=== PATIENT | female | born 1955 | race Caucasian/White ===

== ENCOUNTER 2018-01-27 18:02 | Outpatient (CLI) | payer MEDICAID | END 2018-01-27 18:03 | disposition EMS.NT | LOC: EMS 18:02 | PROVIDERS: ATTEND Surgery | DX: R56.9 Unspecified convulsions (principal) ==

== ENCOUNTER 2018-04-26 05:16 | Outpatient (CLI) | payer MEDICAID | END 2018-04-26 05:17 | disposition critical access hospital (66) | LOC: EMS 05:16 | PROVIDERS: ATTEND Surgery | DX: R56.9 Unspecified convulsions (principal) | CPT/HCPCS: A0425; A0427 ==

== ENCOUNTER 2018-04-26 05:51 | Emergency (ER) | payer MEDICAID ==
--- NOTE | 2018-04-26 07:00 | ED Physician Documentation ---
PD HPI SEIZURE - Stated complaint Stated Complaint: SZ - Chief complaint Chief Complaint: Neuro - History obtained from History obtained from: Patient, Family, EMS - History of Present Illness Timing - onset: Last night Witnessed: Witnessed Number of seizures: Multiple (she had brief seizure last night; has history of seizures, so just watched and aroused okay. Had another one overnight and then again this morning. Seemed to feel well otherwise. No recent change in meds, no missed meds. Patient currently being treated for UTI. No other URI/NVD/rash/ fevers or other apparent source of infection.) Description of seizure activity: Generalized Injury during seizure: None Associated symptoms: None. No: Headache, Chest pain, Dyspnea, Nausea / vomiting History of seizures: Known seizure disorder (prior aneurysm with surgery about 5 years ago. Seizures intermittent.) Contributing factors: Other (feels social stresses the past few weeks). No: Off meds, Out of meds, Low blood sugar, Head injury, Fever Similar symptoms before: Diagnosis (seizure disorder for several years s/p bleed /brain surgery) Recently seen: Emergency Dept (last general seizure Oct 2017, family says she has brief absence seizures often.) Review of Systems Constitutional: denies: Fever, Chills Nose: denies: Rhinorrhea / runny nose, Congestion Throat: denies: Sore throat Cardiac: denies: Chest pain / pressure Respiratory: denies: Cough GI: denies: Abdominal Pain, Nausea, Vomiting, Diarrhea : reports: Dysuria (last week, and is on Macrobid currently with improved symptoms.). denies: Discharge Skin: denies: Rash, Lesions Neurologic: reports: Generalized weakness. 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 - Present Medications Home Medications: Ambulatory Orders Medication Instructions Recorded Confirmed Carvedilol 6.25 mg PO BID 12/18/14 12/18/14 Lacosamide [Vimpat] 150 mg PO BID 12/18/14 12/18/14 Spironolactone 25 mg PO DAILY 12/18/14 12/18/14 ALPRAZolam [Alprazolam] 0.5 mg 02/11/16 Baclofen 10 mg 02/11/16 Ciprofloxacin [Cipro] 250 mg PO Q12H #10 tablet 02/11/16 Citalopram [CeleXA] 20 mg 02/11/16 Lacosamide [Vimpat] 200 mg PO BID #60 tablet 02/11/16 Lisinopril 10 mg 02/11/16 Pravastatin [Pravachol] 10 mg 02/11/16 amLODIPine [Norvasc] 10 mg 02/11/16 rOPINIRole [Requip] 0.5 mg 02/11/16 - Allergies Allergies/Adverse Reactions: Allergies Allergy/AdvReac Type Severity Reaction Status Date / Time codeine Allergy Unknown Verified 02/11/16 14:05 procaine HCl * Allergy Unknown Verified 02/11/16 14:05 [From Novocain] epinephrine AdvReac Unknown Verified 02/11/16 14:05 iodine AdvReac Unknown Verified 02/11/16 14:05 Sulfa (Sulfonamide AdvReac Unknown Verified 02/11/16 14:05 Antibiotics) - Social History Does the pt smoke?: No Smoking Status: Never smoker Does the pt drink ETOH?: No Does the pt have substance abuse?: No - Family History Family history: reports: Non contributory - Immunizations Immunizations are current?: Yes - POLST Patient has POLST: No PD ED PE NORMAL - Vitals Vital signs reviewed: Yes - General General: Alert and oriented X 3 (initially on arrival to ER, was sleepy and some confused but eyes open. Within several minutes, she is awake and conversant. ), No acute distress, Well developed/nourished - HEENT HEENT: Atraumatic - Neck Neck: Supple, no meningeal sign, No adenopathy - Cardiac Cardiac: RRR, No murmur - Respiratory Respiratory: Clear bilaterally - Abdomen Abdomen: Soft, Non tender - Back Back: No CVA TTP - Derm Derm: Normal color, Warm and dry - Extremities Extremities: No edema, No calf tenderness / cord - Neuro Neuro: Alert and oriented X 3, No motor deficit, Normal speech Eye Opening: Spontaneous Motor: Obeys Commands Verbal: Oriented GCS Score: 15 - Psych Psych: Normal mood, Normal affect Results - Vitals Vitals: Vital Signs - 24 hr 04/26/18 04/26/1804/26/18 05:55 07:52 10:09 Temperature 36.3 C L Heart Rate 93 83 77 Respiratory 25 H 20 16 Rate Blood Pressure 149/102 H 127/95 H 124/73 O2 Saturation 99 96 100 04/26/18 11:01 Temperature 36.0 C L Heart Rate 72 Respiratory 16 Rate Blood Pressure 105/77 O2 Saturation 99 Oxygen O2 Source Room air - Labs Labs: Laboratory Tests 04/26/18 04/26/18 04/26/18 07:00 07:00 07:38 WBC 6.5 RBC 4.35 Hgb 13.7 Hct 40.9 MCV 94.1 MCH 31.4 H MCHC 33.4 RDW 13.7 MPV 8.8 Neut # (Auto) 5.5 Lymph # (Auto) 0.5 L [place] # (Auto) 0.4 Eos # (Auto) 0.0 Baso # (Auto) 0.1 Absolute Nucleated RBC 0.01 Nucleated RBC % 0.1 WBC Morphology NORMAL APPEARANCE Platelet Estimate NORMAL (130-450,000) Platelet Morphology PLATELET CLUMPING RBC Morph Micro Appear NORMAL APPEARANCE Sodium 135 Potassium 4.5 Chloride 102 Carbon Dioxide 26 Anion Gap 7.0 BUN 24 H Creatinine 0.9 Estimated GFR (MDRD) 63 L Glucose 108 H Lactic Acid 1.5 Calcium 8.5 Phosphorus 3.2 Magnesium 1.9 Total Bilirubin 0.4 AST 20 ALT 17 Alkaline Phosphatase 43 Total Protein 7.1 Albumin 3.3 Globulin 3.8 Albumin/Globulin Ratio 0.9 L Lipase 34 Urine Color Urine Clarity Urine pH Ur Specific [place] Urine Protein Urine Glucose (UA) Urine Ketones Urine Occult Blood Urine Nitrite Urine Bilirubin Urine Urobilinogen Ur Leukocyte Esterase Ur Microscopic Review Urine Culture Comments 04/26/18 10:05 WBC RBC Hgb Hct MCV MCH MCHC RDW MPV Neut # (Auto) Lymph # (Auto) [place] # (Auto) Eos # (Auto) Baso # (Auto) Absolute Nucleated RBC Nucleated RBC % WBC Morphology Platelet Estimate Platelet Morphology RBC Morph Micro Appear Sodium Potassium Chloride Carbon Dioxide Anion Gap BUN Creatinine Estimated GFR (MDRD) Glucose Lactic Acid Calcium Phosphorus Magnesium Total Bilirubin AST ALT Alkaline Phosphatase Total Protein Albumin Globulin Albumin/Globulin Ratio Lipase Urine Color YELLOW Urine Clarity CLEAR Urine pH 5.5 Ur Specific [place] 1.020 Urine Protein NEGATIVE Urine Glucose (UA) NEGATIVE Urine Ketones NEGATIVE Urine Occult Blood NEGATIVE Urine Nitrite NEGATIVE Urine Bilirubin NEGATIVE Urine Urobilinogen 0.2 (NORMAL) Ur Leukocyte Esterase NEGATIVE Ur Microscopic Review NOT INDICATED Urine Culture Comments NOT INDICATED - Rads (name of study) head CT Radiology: Prelim report reviewed (no acute findings (ordered by prior EDMD).), EMP read contemporaneously PD MEDICAL DECISION MAKING - ED course Complexity details: re-evaluated patient (awake, alert and conversant after a little while, with postictal recovered. ), considered differential (give some fluids IV and PO. Check UA to ensure UTI is clearing. Basic labs for lytes/ infection. Otherwise h/o seizures with recurrent seizure. ), d/w patient - Sepsis Event Vital Signs: Vital Signs - 24 hr 04/26/18 04/26/18 04/26/18 05:55 07:52 10:09 Temperature 36.3 C L Heart Rate 93 83 77 Respiratory 25 H 20 16 Rate Blood Pressure 149/102 H 127/95 H 124/73 O2 Saturation 99 96 100 04/26/18 11:01 Temperature 36.0 C L Heart Rate 72 Respiratory 16 Rate Blood Pressure 105/77 O2 Saturation 99 Oxygen O2 Source Room air Departure - Departure Disposition: 01 Home, Self Care Clinical Impression: Grand mal seizure, Seizure disorder Condition: Stable Record reviewed to determine appropriate education?: Yes Instructions: ED Seizure Recurrent Comments: Your urine test is normal appearing so does not look like the infection is clearing. Finish out the nitrofurantoin. Continue your other usual medicines. Your other blood tests are okay and there is no signs of bleeding or abnormality on your head CT. Follow-up with your primary care if more frequent seizures otherwise medications as usual. Discharge Date/Time: 04/26/18 11:02
[2018-04-26 07:12] LABS: BASOPHILS # (AUTO) 0.1 10^3/uL (0.0-0.1); BASOPHILS % (AUTO) 0.9 %; EOSINOPHILS % (AUTO) 0.7 %; HGB - HEMOGLOBIN 13.7 g/dL (12.0-16.0); LYMPHOCYTES # (AUTO) 0.5 10^3/uL (1.5-3.5); LYMPHOCYTES % (AUTO) 8.2 %; MEAN CORPUSCULAR HEMOGLOBIN 31.4 pg (27.0-31.0); MEAN CORPUSCULAR HGB CONC 33.4 g/dL (32.0-36.0); MEAN CORPUSCULAR VOLUME 94.1 fL (81.0-99.0); MEAN PLATELET VOLUME 8.8 fL (7.9-10.8); MONOCYTES # (AUTO) 0.4 10^3/uL (0.0-1.0); MONOCYTES % (AUTO) 6.3 %; NEUTROPHILS # (AUTO) 5.5 10^3/uL (1.5-6.6); NEUTROPHILS % (AUTO) 83.9 %; RED BLOOD COUNT 4.35 10^6/uL (4.20-5.40); RED CELL DISTRIBUTION WIDTH 13.7 % (12.0-15.0); WHITE BLOOD COUNT 6.5 x10^3/uL (4.8-10.8)
[2018-04-26 07:20] LABS: ALBUMIN 3.3 g/dL (3.2-5.5); ALBUMIN/GLOBULIN RATIO 0.9 (1.0-2.2); BILIRUBIN,TOTAL 0.4 mg/dL (0.2-1.0); CALCIUM 8.5 mg/dL (8.5-10.3); CREATININE 0.9 mg/dL (0.4-1.0); MAGNESIUM 1.9 mg/dL (1.7-2.8); PHOSPHORUS 3.2 mg/dL (2.5-4.6); TOTAL PROTEIN 7.1 g/dL (6.7-8.2)
[2018-04-26 07:29] LABS: PLATELET MORPHOLOGY PLATELET CLUMPING (NORMAL)
[2018-04-26 07:30] LABS: PLATELET ESTIMATE, MANUAL NORMAL (130-450,000) (NORMAL); RBC MORPHOLOGY (MULTIPLE) NORMAL APPEARANCE (NORMAL)
--- NOTE | 2018-04-26 07:50 | CT Report ---
Procedure Date: 04/26/2018 Accession Number: [id number] / [id number] Procedure: CT - Head W/O CPT Code: FULL RESULT: EXAM: CT HEAD EXAM DATE: 04/26/2018 07:22 AM. CLINICAL HISTORY: Seizure, hx of prior bleed. COMPARISON: 02/11/2016. TECHNIQUE: Multiaxial CT images were obtained from the foramen magnum to the vertex. Reformats: Coronal. IV contrast: None. In accordance with CT protocol optimization, one or more of the following dose reduction techniques were utilized for this exam: automated exposure control, adjustment of mA and/or KV based on patient size, or use of iterative reconstructive technique. FINDINGS: Parenchyma: No acute intraparenchymal hemorrhage. No evidence of mass, midline shift, or CT findings of acute infarction. Diffuse chronic microangiopathic white matter changes are evident. Extraaxial Spaces: Normal for age. No subdural or epidural collections identified. Ventricles: The ventricles and cortical sulci are enlarged, consistent with age-related tissue loss. Sinuses and orbits: Imaged paranasal sinuses, orbits, and mastoids show no significant abnormality. Bones: No evidence of fracture or calvarial defect. Other: None. IMPRESSION: Generalized age-related cortical atrophic changes without evidence of acute intracranial abnormality. No significant change from prior. RADIA
--- NOTE | 2018-04-26 08:04 | XRAY Report ---
Procedure Date: 04/26/2018 Accession Number: [id number] / [id number] Procedure: XR - Chest 1 View X-Ray CPT Code: 52295 FULL RESULT: EXAM: CHEST RADIOGRAPHY EXAM DATE: 04/26/2018 07:51 AM. CLINICAL HISTORY: Seizure x several overnight. COMPARISON: 12/18/2014. TECHNIQUE: 1 view. FINDINGS: Lungs/Pleura: No focal consolidation. No pneumothorax or large pleural effusion. Elevation of the left hemidiaphragm as before. Mediastinum: The cardiac silhouette is within normal limits for size. Tortuous, atherosclerotic thoracic aorta as before. Other: None. IMPRESSION: No radiographically apparent acute abnormality in the chest. No significant change from prior. RADIA
[2018-04-26] MEDS: LORazepam 2 MG/ML VIAL IVP STA (09:17)
[2018-04-26 10:23] LABS: BILIRUBIN,URINE NEGATIVE (NEGATIVE); GLUCOSE, URINE (UA) NEGATIVE (NEGATIVE); KETONES,URINE (UA) NEGATIVE (NEGATIVE); LEUKOCYTE ESTERASE, URINE NEGATIVE (NEGATIVE); NITRITE,URINE NEGATIVE (NEGATIVE); OCCULT BLOOD,URINE NEGATIVE (NEGATIVE); PH,URINE 5.5 PH (5.0-7.5); PROTEIN,URINE NEGATIVE (NEGATIVE); UROBILINOGEN,URINE 0.2 (NORMAL) E.U./dL (NORMAL)
[2018-04-26 10:28] LABS: CLARITY,URINE CLEAR (CLEAR)
[2018-04-26 11:02] VITALS: BP 105/77
== END 2018-04-26 11:02 | disposition home or self-care (01) ==
LOC: EDUNIT# → ED 05:51
DX: G40.409 Other generalized epilepsy and epileptic syndromes, not intractable, without status epilepticus (principal); I10 Essential (primary) hypertension; E78.00 Pure hypercholesterolemia, unspecified; I25.10 Atherosclerotic heart disease of native coronary artery without angina pectoris; M19.90 Unspecified osteoarthritis, unspecified site
CPT/HCPCS: 36415; 70450; 71045; 80053; 81001; 81003; 83605; 83690; 83735; 84100; 85025; 87086; 96374; 99283; 99284

== ENCOUNTER 2018-08-18 00:53 | Outpatient (CLI) | payer MEDICAID | END 2018-08-18 00:54 | disposition critical access hospital (66) | LOC: EMS 00:53 | PROVIDERS: ATTEND Surgery | DX: R51 Headache (principal); R68.89 Other general symptoms and signs | CPT/HCPCS: A0425; A0429; A0999 ==

== ENCOUNTER 2018-08-18 00:56 | Emergency (ER) | payer MEDICAID ==
[2018-08-18] MEDS ORDERED: SODIUM CHLORIDE 0.9% 500 ML IV ONE (01:13)
[2018-08-18 01:46] LABS: BASOPHILS % (AUTO) 0.8 %; EOSINOPHILS # (AUTO) 0.1 10^3/uL (0.0-0.7); EOSINOPHILS % (AUTO) 0.8 %; HGB - HEMOGLOBIN 13.8 g/dL (12.0-16.0); LYMPHOCYTES # (AUTO) 0.6 10^3/uL (1.5-3.5); LYMPHOCYTES % (AUTO) 8.5 %; MEAN CORPUSCULAR HEMOGLOBIN 31.1 pg (27.0-31.0); MEAN CORPUSCULAR HGB CONC 34.1 g/dL (32.0-36.0); MEAN CORPUSCULAR VOLUME 91.4 fL (81.0-99.0); MONOCYTES # (AUTO) 0.7 10^3/uL (0.0-1.0); MONOCYTES % (AUTO) 10.3 %; NEUTROPHILS # (AUTO) 5.3 10^3/uL (1.5-6.6); NEUTROPHILS % (AUTO) 79.6 %; PLT - PLATELET COUNT 223 10^3/uL (130-450); RED BLOOD COUNT 4.43 10^6/uL (4.20-5.40); RED CELL DISTRIBUTION WIDTH 13.4 % (12.0-15.0); WHITE BLOOD COUNT 6.6 x10^3/uL (4.8-10.8)
[2018-08-18 01:59] LABS: ACETAMINOPHEN < 10 ug/mL (10-30); ALBUMIN 3.9 g/dL (3.2-5.5); ALBUMIN/GLOBULIN RATIO 0.9 (1.0-2.2); ALKALINE PHOSPHATASE 57 IU/L (42-121); ALT ALANINE AMINOTRANSFERASE 15 IU/L (10-60); AST ASPARTATE AMINOTRANSFERASE 14 IU/L (10-42); BILIRUBIN,TOTAL 0.5 mg/dL (0.2-1.0); BUN - BLOOD UREA NITROGEN 27 mg/dL (6-20); CARBON DIOXIDE - CO2 30 mmol/L (21-32); CHLORIDE 98 mmol/L (101-111); CREATININE 1.2 mg/dL (0.4-1.0); GFR - MDRD 45 (>89); GLUCOSE 113 mg/dL (70-100); LIPASE 24 U/L (22-51); SALICYLATE < 6.0 mg/dL; SODIUM 136 mmol/L (135-145); TOTAL PROTEIN 8.1 g/dL (6.7-8.2)
--- NOTE | 2018-08-18 02:13 | CT Report ---
Reason: ams Procedure Date: 08/18/2018 Accession Number: [id number] / [id number] Procedure: CT - Head W/O CPT Code: FULL RESULT: EXAM: CT HEAD EXAM DATE: 08/18/2018 02:04 AM. CLINICAL HISTORY: Altered mental status. COMPARISON: HEAD W/O 04/26/2018 7:14 AM. TECHNIQUE: Multiaxial CT images were obtained from the foramen magnum to the vertex. Reformats: Sagittal and coronal. IV contrast: None. In accordance with CT protocol optimization, one or more of the following dose reduction techniques were utilized for this exam: automated exposure control, adjustment of mA and/or KV based on patient size, or use of iterative reconstructive technique. FINDINGS: Parenchyma: No intraparenchymal hemorrhage. No evidence of mass, midline shift, or CT findings of infarction. Vasquez-white differentiation is distinct. There is extensive chronic microvascular ischemic change throughout the white matter bilaterally. This is stable. A chronic lacunar infarct at the junction of the right thalamus and internal capsule is unchanged. Extraaxial Spaces: Normal for age. No subdural or epidural collections identified. Ventricles: Normal in size and position. Sinuses and Orbits: Imaged paranasal sinuses, orbits, and mastoids show no significant abnormality. Bones: No evidence of fracture or calvarial defect. Other: None. IMPRESSION: 1. No acute intracranial abnormality. No significant change compared to 04/26/2018. 2. Extensive chronic microvascular ischemic change in the deep white matter bilaterally appears stable. A chronic lacunar infarct at the junction of the right thalamus and internal capsule is unchanged. 3. No intracranial mass lesion, mass-effect, or hydrocephalus. RADIA
[2018-08-18 02:20] LABS: MUDS CUTOFF CONCENTRATIONS CUTOFF CONC BELOW:
[2018-08-18 02:21] LABS: BILIRUBIN,URINE NEGATIVE (NEGATIVE); CLARITY,URINE CLEAR (CLEAR); GLUCOSE, URINE (UA) NEGATIVE (NEGATIVE); KETONES,URINE (UA) NEGATIVE (NEGATIVE); LEUKOCYTE ESTERASE, URINE SMALL (NEGATIVE); NITRITE,URINE POSITIVE (NEGATIVE); OCCULT BLOOD,URINE NEGATIVE (NEGATIVE); PROTEIN,URINE NEGATIVE (NEGATIVE); UROBILINOGEN,URINE 0.2 (NORMAL) E.U./dL (NORMAL)
[2018-08-18 02:26] LABS: BACTERIA,URINE Moderate /HPF (None Seen); RBC,URINE None Seen /HPF (0-5); SQUAMOUS EPITHELIAL CELL,UR RARE Squamous (<= Few)
[2018-08-18 02:33] LABS: AMPHETAMINE SCREEN,URINE NEGATIVE (NEGATIVE); BENZODIAZEPINES SCREEN, URINE NEGATIVE (NEGATIVE); COCAINE SCREEN URINE NEGATIVE (NEGATIVE); METHADONE SCREEN, URINE NEGATIVE (NEGATIVE); METHAMPHETAMINES SCREEN, URINE NEGATIVE (NEGATIVE); OPIATE SCREEN, URINE NEGATIVE (NEGATIVE); OXYCODONE SCREEN, URINE NEGATIVE (NEGATIVE); PROPOXYPHENE SCREEN, URINE NEGATIVE (NEGATIVE); TRICYCLIC ANTIDEPRESSANT,URINE NEGATIVE (NEGATIVE)
[2018-08-18 03:13] VITALS: BP 115/90
[2018-08-18] MEDS ORDERED: cephALEXin 250 MG CAPSULE PO STA (03:27)
--- NOTE | 2018-08-18 03:29 | ED Physician Documentation ---
History of Present Illness - Stated complaint Stated Complaint: GARCIA, TWITCHING SP CANNABIS USE - Chief complaint Chief Complaint: General - Additonal information Additional information: 63-year-old female was brought to the emergency department for evaluation of altered mental status. The patient normally uses CBD oil and this evening accidentally took an edible. The family reports that the patient was altered and confused which is not her normal baseline. 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 No other acute symptoms. Symptoms are described as moderate. No relieving factors. Review of Systems Constitutional: reports: Fatigue. 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, 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 - Present Medications Home Medications: Ambulatory Orders Medication Instructions Recorded Confirmed Carvedilol 6.25 mg PO BID 12/18/14 12/18/14 Lacosamide [Vimpat] 150 mg PO BID 12/18/14 12/18/14 Spironolactone 25 mg PO DAILY 12/18/14 12/18/14 ALPRAZolam [Alprazolam] 0.5 mg 02/11/16 Baclofen 10 mg 02/11/16 Ciprofloxacin [Cipro] 250 mg PO Q12H #10 tablet 02/11/16 Citalopram [CeleXA] 20 mg 02/11/16 Lacosamide [Vimpat] 200 mg PO BID #60 tablet 02/11/16 Lisinopril 10 mg 02/11/16 Pravastatin [Pravachol] 10 mg 02/11/16 amLODIPine [Norvasc] 10 mg 02/11/16 rOPINIRole [Requip] 0.5 mg 02/11/16 - Allergies Allergies/Adverse Reactions: Allergies Allergy/AdvReac Type Severity Reaction Status Date / Time codeine Allergy Unknown Verified 08/18/18 01:08 procaine HCl * Allergy Unknown Verified 08/18/18 01:08 [From Novocain] epinephrine AdvReac Unknown Verified 08/18/18 01:08 iodine AdvReac Unknown Verified 08/18/18 01:08 Sulfa (Sulfonamide AdvReac Unknown Verified 08/18/18 01:08 Antibiotics) - Social History Does the pt smoke?: No Smoking Status: Never smoker Does the pt drink ETOH?: No Does the pt have substance abuse?: No - Immunizations Immunizations are current?: Yes - POLST Patient has POLST: No PD ED PE NORMAL - General General: Other (The patient's alert but confused) - HEENT HEENT: Atraumatic, PERRL, EOMI, Ears normal - Cardiac Cardiac: RRR, Strong equal pulses - Respiratory Respiratory: No respiratory distress, Clear bilaterally - Abdomen Abdomen: Soft, Non tender - Derm Derm: Normal color - Extremities Extremities: No deformity - Neuro Neuro: Other (The patient's alert, confused but able to follow commands and answer questions. The patient has baseline left-sided weakness. No acute changes.) PD ED PE EXPANDED - Psych Psych: Withdrawn Results - Vitals Vitals: Vital Signs - 24 hr 08/18/18 08/18/18 01:02 03:12 Temperature 36.4 C L Heart Rate 86 89 Respiratory 18 16 Rate Blood Pressure 107/75 115/90 H O2 Saturation 97 97 Oxygen O2 Source Room air - Labs Labs: Laboratory Tests 08/18/18 08/18/18 08/18/18 01:30 01:30 01:30 WBC 6.6 RBC 4.43 Hgb 13.8 Hct 40.5 MCV 91.4 MCH 31.1 H MCHC 34.1 RDW 13.4 Plt Count 223 MPV 8.0 Neut # (Auto) 5.3 Lymph # (Auto) 0.6 L [place] # (Auto) 0.7 Eos # (Auto) 0.1 Baso # (Auto) 0.0 Absolute Nucleated RBC 0.00 Nucleated RBC % 0.1 Sodium 136 Potassium 4.5 Chloride 98 L Carbon Dioxide 30 Anion Gap 8.0 BUN 27 H Creatinine 1.2 H Estimated GFR (MDRD) 45 L Glucose 113 H Calcium 9.0 Total Bilirubin 0.5 AST 14 ALT 15 Alkaline Phosphatase 57 Troponin I < 0.04 Total Protein 8.1 Albumin 3.9 Globulin 4.2 Albumin/Globulin Ratio 0.9 L Lipase 24 Urine Color Urine Clarity Urine pH Ur Specific [place] Urine Protein Urine Glucose (UA) Urine Ketones Urine Occult Blood Urine Nitrite Urine Bilirubin Urine Urobilinogen Ur Leukocyte Esterase Urine RBC Urine WBC Ur Squamous Epith Cells Urine Bacteria Ur Microscopic Review Urine Culture Comments Salicylates < 6.0 Urine Opiates Screen Ur Oxycodone Screen Urine Methadone Screen Ur Propoxyphene Screen Acetaminophen < 10 L Ur Barbiturates Screen Ur Tricyclics Screen Ur Phencyclidine Scrn Ur Amphetamine Screen U Methamphetamines Scrn U Benzodiazepines Scrn Urine Cocaine Screen U Cannabinoids Screen Ethyl Alcohol < 5.0 08/18/18 02:15 WBC RBC Hgb Hct MCV MCH MCHC RDW Plt Count MPV Neut # (Auto) Lymph # (Auto) [place] # (Auto) Eos # (Auto) Baso # (Auto) Absolute Nucleated RBC Nucleated RBC % Sodium Potassium Chloride Carbon Dioxide Anion Gap BUN Creatinine Estimated GFR (MDRD) Glucose Calcium Total Bilirubin AST ALT Alkaline Phosphatase Troponin I Total Protein Albumin Globulin Albumin/Globulin Ratio Lipase Urine Color YELLOW Urine Clarity CLEAR Urine pH 5.0 Ur Specific [place] >=1.030 H Urine Protein NEGATIVE Urine Glucose (UA) NEGATIVE Urine Ketones NEGATIVE Urine Occult Blood NEGATIVE Urine Nitrite POSITIVE H Urine Bilirubin NEGATIVE Urine Urobilinogen 0.2 (NORMAL) Ur Leukocyte Esterase SMALL H Urine RBC None Seen Urine WBC 11-25 H Ur Squamous Epith Cells RARE Squamous Urine Bacteria Moderate H Ur Microscopic Review INDICATED Urine Culture Comments INDICATED Salicylates Urine Opiates Screen NEGATIVE Ur Oxycodone Screen NEGATIVE Urine Methadone Screen NEGATIVE Ur Propoxyphene Screen NEGATIVE Acetaminophen Ur Barbiturates Screen NEGATIVE Ur Tricyclics Screen NEGATIVE Ur Phencyclidine Scrn NEGATIVE Ur Amphetamine Screen NEGATIVE U Methamphetamines Scrn NEGATIVE U Benzodiazepines Scrn NEGATIVE Urine Cocaine Screen NEGATIVE U Cannabinoids Screen POSITIVE H Ethyl Alcohol - Rads (name of study) CT head Radiology: Final report received (1. No acute intracranial abnormality. No significant change compared to 04/26/2018. 2. Extensive chronic microvascular ischemic change in the deep white matter bilaterally appears stable. A chronic lacunar infarct at the junction of the right thalamus and internal capsule is unchanged. 3. No intracranial mass lesion, mass-effect, or hydrocephalus. ) PD MEDICAL DECISION MAKING - ED course ED course: On reevaluation the patient is resting comfortably and appears to be improved and roughly her baseline. The patient's workup does not reveal any acute abnormality that would necessitate admission to the hospital or transfer to another facility. The patient on further discussion has been having urinary symptoms and her urine does appear to be infected. The patient would put on a course of an antibiotic and appears appropriate for discharge and outpatient management. I discussed with her the findings and plan and she understands and agrees. I discussed warning signs and recommended returning to the emergency department immediately for worsening or any concerns. Departure - Departure Disposition: 01 Home, Self Care Clinical Impression: Altered mental state Qualifiers: Altered mental status type: unspecified Qualified Code(s): R41.82 - Altered mental status, unspecified Marijuana intoxication Qualifiers: Complication of substance-induced condition: uncomplicated Qualified Code(s): F12.920 - Cannabis use, unspecified with intoxication, uncomplicated UTI (urinary tract infection) Qualifiers: Urinary tract infection type: site unspecified Hematuria presence: without hematuria Qualified Code(s): N39.0 - Urinary tract infection, site not specified Condition: Good Instructions: Cannabinoid Screen and Confirmation Urine, ED Dysuria Uncertain Cause Ch Comments: Please follow-up with primary care for reevaluation. Please return to the emergency department for worsening symptoms or new concerns.
== END 2018-08-18 03:50 | disposition home or self-care (01) ==
LOC: EDUNIT# → ED 00:56
DX: R41.82 Altered mental status, unspecified (principal); N39.0 Urinary tract infection, site not specified; I10 Essential (primary) hypertension
CPT/HCPCS: 36415; 70450; 80053; 80306; 80307; 80320; 80329; 81001; 83690; 84484; 85025; 87077; 87086; 87181; 96360; 99283; A9270; 81003

== ENCOUNTER 2019-02-18 23:12 | Outpatient (CLI) | payer MEDICAID | END 2019-02-18 23:13 | disposition EMS.NT | LOC: EMS 23:12 | PROVIDERS: ATTEND Surgery | DX: R56.9 Unspecified convulsions (principal) ==

== ENCOUNTER 2019-09-22 13:12 | Outpatient (CLI) | payer MEDICAID | END 2019-09-22 13:13 | disposition short-term general hospital (02) | LOC: EMS 13:12 | PROVIDERS: ATTEND Surgery | DX: R20.0 Anesthesia of skin (principal) | CPT/HCPCS: A0425; A0429; A0999 ==

== ENCOUNTER 2020-08-30 01:46 | Outpatient (CLI) | payer MEDICAID | END 2020-08-30 01:47 | disposition EMS.NT | LOC: EMS 01:46 | PROVIDERS: ATTEND Surgery | DX: Z03.89 Encounter for observation for other suspected diseases and conditions ruled out (principal) ==

== ENCOUNTER 2020-10-15 03:48 | Outpatient (CLI) | payer MEDICAID | END 2020-10-15 03:49 | disposition left against medical advice (07) | LOC: EMS 03:48 | PROVIDERS: ATTEND Surgery | DX: R07.9 Chest pain, unspecified (principal); Z53.20 Procedure and treatment not carried out because of patient's decision for unspecified reasons ==

== ENCOUNTER 2020-12-31 23:16 | Outpatient (CLI) | payer MEDICAID | END 2020-12-31 23:17 | disposition EMS.NT | LOC: EMS 23:16 | DX: R56.9 Unspecified convulsions (principal) ==

== ENCOUNTER 2021-02-15 03:07 | Outpatient (CLI) | payer MEDICARE, MEDICAID | END 2021-02-15 03:08 | disposition critical access hospital (66) | LOC: EMS 03:07 | DX: R11.2 Nausea with vomiting, unspecified (principal); R19.7 Diarrhea, unspecified | CPT/HCPCS: A0425; A0429 ==

== ENCOUNTER 2021-02-15 03:39 | Emergency (ER) | payer MEDICARE, MEDICAID ==
[2021-02-15] MEDS ORDERED: HYDROmorphone 1 MG/ML CARPUJECT IVP STA (03:56)
[2021-02-15] MEDS ORDERED: ONDANSETRON 4 MG/2 ML VIAL IVP STA (03:56)
[2021-02-15] MEDS ORDERED: SODIUM CHLORIDE 0.9% 1,000 ML IV STA (03:56)
--- NOTE | 2021-02-15 03:56 | ED Physician Documentation ---
PD HPI ABD PAIN - Stated complaint Stated Complaint: RUQ PX/VOM - Chief complaint Chief Complaint: Abd Pain - History obtained from History obtained from: Patient, EMS - History of Present Illness Timing - onset: Yesterday (about 4 pm yesterday, onset of RUQ abd pain radiating to right flank, associated with nausea and vomiting, and has had 3-4 loose to watery stools. No noted blood in vomit. She did not look at stools.) Timing - duration: Hours (12) Timing - details: Abrupt onset, Still present Quality: Aching, Sharp, Pain Location: RUQ Radiation: Right flank Improved by: No: Vomiting Worsened by: Breathing Associated symptoms: Nausea, Vomiting, Diarrhea. No: Fever, Hematemesis, Constipation Similar symptoms before: Has not had sx before Recently seen: Not recently seen Review of Systems Constitutional: reports: Fatigue. 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, Oophrectomy - Present Medications Home Medications: Ambulatory Orders Medication Instructions Recorded Confirmed Carvedilol 12.5 mg PO DAILY 12/18/14 12/18/14 Spironolactone 25 mg PO DAILY 12/18/14 12/18/14 Baclofen 10 mg PO HS 02/11/16 lisinopriL [Lisinopril] 10 mg PO DAILY 02/11/16 cephALEXin [Keflex] 500 mg PO BID #14 capsule 08/18/18 Diphenoxylate/Atropine [Lomotil] 1 each PO QID PRN #12 tablet 02/15/21 HYDROcod/ACETAM 5/325 [[place] 5/325] 1 ea PO Q6H PRN #15 tablet 02/15/21 Ondansetron HCl [Zofran] 4 mg PO Q8HR PRN 02/15/21 02/15/21 Ondansetron Odt [Zofran] 4 mg TL Q6H PRN #10 tablet 02/15/21 Sertraline HCl 100 mg PO DAILY 02/15/21 02/15/21 lamoTRIgine [Lamictal] 150 mg PO BID 02/15/21 02/15/21 - Allergies Allergies/Adverse Reactions: Allergies Allergy/AdvReac Type Severity Reaction Status Date / Time codeine Allergy Unknown Verified 02/15/21 03:57 procaine HCl * Allergy Unknown Verified 02/15/21 03:57 [From Novocain] epinephrine AdvReac Unknown Verified 02/15/21 03:57 iodine AdvReac Unknown Verified 02/15/21 03:57 Sulfa (Sulfonamide AdvReac Unknown Verified 02/15/21 03:57 Antibiotics) - Social History Does the pt smoke?: No Smoking Status: Never smoker Does the pt drink ETOH?: No Does the pt have substance abuse?: No - Immunizations Immunizations are current?: Yes - POLST Patient has POLST: No PD ED PE NORMAL - Vitals Vital signs reviewed: Yes - General General: Alert and oriented X 3, No acute distress, Well developed/nourished - HEENT HEENT: Pharynx benign - Neck Neck: Supple, no meningeal sign, No adenopathy - Cardiac Cardiac: RRR, No murmur - Respiratory Respiratory: Clear bilaterally - Abdomen Abdomen: Normal bowel sounds, Soft, Non distended, No organomegaly, Other (tender RUQ with mild local guarding. No percussion tenderness. Obese abdomen. ) - Female Female : Deferred - Rectal Rectal: Deferred - Back Back: No spinal TTP, Other (some tenderness right flank. ) - Derm Derm: Normal color, Warm and dry - Neuro Neuro: Alert and oriented X 3, Normal speech Results - Vitals Vitals: Vital Signs - 24 hr 02/15/21 02/15/21 02/15/21 03:39 04:25 04:45 Temperature 36.2 C L Heart Rate 78 75 71 Respiratory 16 16 16 Rate Blood Pressure 134/97 H 127/94 H 101/70 O2 Saturation 97 97 88 L 02/15/21 02/15/21 02/15/21 04:50 05:03 05:05 Temperature 36.7 C Heart Rate 76 78 Respiratory 13 18 Rate Blood Pressure 128/84 H 128/84 H O2 Saturation 100 99 97 02/15/21 02/15/21 05:42 06:00 Temperature 36.1 C L Heart Rate 77 76 Respiratory 19 18 Rate Blood Pressure 113/73 112/67 O2 Saturation 96 96 Oxygen O2 Source Nasal cannula Oxygen Flow Rate 3 - Labs Labs: Laboratory Tests 02/15/21 02/15/21 02/15/21 04:00 04:00 05:10 WBC 11.6 H RBC 5.32 Hgb 15.9 Hct 49.9 H MCV 93.8 MCH 29.9 MCHC 31.9 L RDW 13.7 Plt Count 227 MPV 11.1 H Neut # (Auto) 9.5 H Lymph # (Auto) 1.0 L [place] # (Auto) 0.9 Eos # (Auto) 0.1 Baso # (Auto) 0.0 Absolute Nucleated RBC 0.00 Nucleated RBC % 0.0 Sodium 138 Potassium 4.9 Chloride 98 L Carbon Dioxide 26 Anion Gap 14.0 H BUN 33 H Creatinine 1.2 H Estimated GFR (MDRD) 45 L Glucose 112 H Calcium 10.0 Total Bilirubin 1.0 AST 16 ALT 14 Alkaline Phosphatase 69 Total Protein 8.6 H Albumin 4.6 Globulin 4.0 Albumin/Globulin Ratio 1.1 Lipase 29 Urine Color YELLOW Urine Clarity CLEAR Urine pH 5.0 Ur Specific [place] >=1.030 H Urine Protein 30 H Urine Glucose (UA) NEGATIVE Urine Ketones 15 H Urine Occult Blood NEGATIVE Urine Nitrite NEGATIVE Urine Bilirubin NEGATIVE Urine Urobilinogen 1 (NORMAL) Ur Leukocyte Esterase NEGATIVE Urine RBC None Seen Urine WBC 0-3 Ur Squamous Epith Cells MOD Squamous H Urine Bacteria Rare Urine Casts 3-5 Hyaline Casts Ur Microscopic Review INDICATED Urine Culture Comments NOT INDICATED - Rads (name of study) RUQ U/S Radiology: Prelim report reviewed (Borderline wall thickness at 3 mm. One mobile stone. No surrounding fluid. Limited by body habitus.), See rad report abd/pelvic CT Radiology: Prelim report reviewed (Mild distention of the gallbladder. No other acute process identified.), EMP read contemporaneously (Noncontrast due to allergy and patient did not want contrast), See rad report PD MEDICAL DECISION MAKING - ED course Complexity details: reviewed results, re-evaluated patient (Feeling better without any nausea or pain at this time. We discussed treatment options and she opts for home medications for nausea and diarrhea and to see if she feels better over the next day or 2.), considered differential (Consider gastroenteritis versus food related. She does have pain in the right upper quadrant so cholecystitis possible as well.), d/w patient Departure - Departure Disposition: Home, Self Care Condition: Stable Record reviewed to determine appropriate education?: Yes Instructions: ED Nausea Vomiting Follow-Up: Bonnie Redd MD [Primary Care Provider] - Prescriptions: Diphenoxylate/Atropine [Lomotil] 1 each PO QID PRN #12 tablet PRN Reason: Diarrhea HYDROcod/ACETAM 5/325 [[place] 5/325] 1 ea PO Q6H PRN #15 tablet PRN Reason: Pain Ondansetron Odt [Zofran] 4 mg TL Q6H PRN #10 tablet PRN Reason: Nausea / Vomiting Comments: Your ultrasound and CT scan showed some mild distention of the gallbladder with borderline wall thickness. However there is no surrounding fluid. There was 1 mobile stone in the gallbladder which usually is not problematic. Typically is more concerning if it were stuck in the neck or such. So I do not think it is early gallbladder infection. No other acute processes seen on the CT scan. I presume therefore you have either a viral type enteritis or food related type process. I would anticipate improvement within the day or 2. Use ondansetron if needed for nausea and Imodium for diarrhea. Tylenol if needed for pains and add pain medicine if needed. Continue your other usual medicines. Recheck if not improved completely over the next day or 2 and return if worsening.
[2021-02-15 04:20] LABS: BASOPHILS % (AUTO) 0.3 %; EOSINOPHILS # (AUTO) 0.1 10^3/uL (0.0-0.7); EOSINOPHILS % (AUTO) 0.7 %; HCT - HEMATOCRIT 49.9 % (37.0-47.0); HGB - HEMOGLOBIN 15.9 g/dL (12.0-16.0); LYMPHOCYTES % (AUTO) 8.3 %; MEAN CORPUSCULAR HEMOGLOBIN 29.9 pg (27.0-31.0); MEAN CORPUSCULAR HGB CONC 31.9 g/dL (32.0-36.0); MEAN CORPUSCULAR VOLUME 93.8 fL (81.0-99.0); MEAN PLATELET VOLUME 11.1 fL (7.9-10.8); MONOCYTES # (AUTO) 0.9 10^3/uL (0.0-1.0); NEUTROPHILS # (AUTO) 9.5 10^3/uL (1.5-6.6); NEUTROPHILS % (AUTO) 82.4 %; PLT - PLATELET COUNT 227 10^3/uL (130-450); RED BLOOD COUNT 5.32 10^6/uL (4.20-5.40); RED CELL DISTRIBUTION WIDTH 13.7 % (12.0-15.0); WHITE BLOOD COUNT 11.6 x10^3/uL (4.8-10.8)
[2021-02-15] MEDS ORDERED: LORazepam 2 MG/ML VIAL IVP STA (04:47)
[2021-02-15 05:12] LABS: ALBUMIN 4.6 g/dL (3.2-5.5); ALBUMIN/GLOBULIN RATIO 1.1 (1.0-2.2); CREATININE 1.2 mg/dL (0.4-1.0); POTASSIUM 4.9 mmol/L (3.5-5.0); TOTAL PROTEIN 8.6 g/dL (6.7-8.2)
[2021-02-15 05:33] LABS: GLUCOSE, URINE (UA) NEGATIVE (NEGATIVE); KETONES,URINE (UA) 15 mg/dL (NEGATIVE); LEUKOCYTE ESTERASE, URINE NEGATIVE (NEGATIVE); NITRITE,URINE NEGATIVE (NEGATIVE); OCCULT BLOOD,URINE NEGATIVE (NEGATIVE); PROTEIN,URINE 30 mg/dL (NEGATIVE); UROBILINOGEN,URINE 1 (NORMAL) E.U./dL (NORMAL)
[2021-02-15 05:40] LABS: BILIRUBIN,URINE NEGATIVE (NEGATIVE); CLARITY,URINE CLEAR (CLEAR); ICTOTEST,URINE NEGATIVE
[2021-02-15 05:44] LABS: BACTERIA,URINE Rare /HPF (None Seen); CASTS, URINE 3-5 Hyaline Casts /LPF; RBC,URINE None Seen /HPF (0-5); SQUAMOUS EPITHELIAL CELL,UR MOD Squamous (<= Few); WBC,URINE 0-3 /HPF (0-5)
[2021-02-15] MEDS ORDERED: LOPERAMIDE 2 MG CAPSULE PO STA (06:43)
[2021-02-15 06:56] VITALS: BP 104/60
--- NOTE | 2021-02-15 08:33 | Ultrasound Report ---
PROCEDURE: Abdomen Limited INDICATIONS: RUQ pain, nausea/vomiting, diarrhea for a day TECHNIQUE: Real-time focused scanning was performed of the abdomen, with image documentation. COMPARISON: None. FINDINGS: The liver measures 15.3 cm craniocaudad, normal. There is a hyperechoic right hepatic lobe 1.6 x 1.4 x 1.5 cm focus within the liver, consistent with hemangioma. The gallbladder contains one small stone, mobile. The gallbladder wall is at the upper limits of normal at 3.3 mm. No focal tender ness over the gallbladder is seen, however. The pancreas could not be seen due to bowel gas. Right ki dney appears normal. IMPRESSION: Small mobile gallstone within the gallbladder lumen, no evidence of acute cholecystitis or biliary ob struction. Significant bowel gas, nonvisualization of the pancreas and other portions of the retroper itoneum. Reviewed by: Karl Farrell MD on 02/15/2021 8:32 AM PDT Approved by: Karl Farrell MD on 02/15/2021 8:32 AM PDT Station ID: [id number]
--- NOTE | 2021-02-15 11:30 | CT Report ---
PROCEDURE: Abdomen/Pelvis WO INDICATIONS: right upper abd pain, nausea, diarrhea today TECHNIQUE: Noncontrast 5 mm thick sections acquired from the diaphragms to the symphysis. 5 mm coronal and sagi ttal reformats were then performed. For radiation dose reduction, the following was used: automated exposure control, adjustment of mA and/or kV according to patient size. COMPARISON: Ultrasound abdomen 02/15/21 FINDINGS: Image quality: Excellent. ABDOMEN: Lung bases: Lung bases are clear. Heart size is mildly prominent. Solid organs: Liver and spleen are normal in size. Gallbladder is unremarkable. Pancreas is normal in contours. No adrenal nodules. Kidneys are normal in size, without hydronephrosis or nephrolithi asis. Peritoneum and bowel: Fluid-filled small bowel loops are noted. No free fluid or air. Nodes and vessels: No retroperitoneal or mesenteric adenopathy by size criteria. The inferior vena c ailyn is normal in caliber. There is mild aneurysmal dilation of the ascending thoracic aorta measurin g approximately 4.6 cm. No priors are available for comparison. Miscellaneous: No ventral hernias. PELVIS: Genitourinary: Bladder wall thickness is normal. Miscellaneous: No inguinal hernias or adenopathy. Bones: No suspicious bony lesions. No vertebral body compression fractures. IMPRESSION: 1. Nonspecific appearance of fluid-filled small bowel loops. Enteritis cannot be definitively exclude d. 2. Mild aneurysmal dilation of the ascending thoracic aorta. Continued follow-up is recommended to do cument stability. Reviewed by: Lakia Keen MD on 02/15/2021 11:28 AM PDT Approved by: Lakia Keen MD on 02/15/2021 11:28 AM PDT Station ID: [id number]
== END 2021-02-15 11:02 | disposition home or self-care (01) ==
LOC: EDUNIT# → ED 03:39
DX: R10.11 Right upper quadrant pain (principal); R11.2 Nausea with vomiting, unspecified; K80.20 Calculus of gallbladder without cholecystitis without obstruction; I10 Essential (primary) hypertension; I25.10 Atherosclerotic heart disease of native coronary artery without angina pectoris; Z86.73 Personal history of transient ischemic attack (TIA), and cerebral infarction without residual deficits
CPT/HCPCS: 36415; 51701; 74176; 76705; 80053; 81001; 83690; 85025; 96374; 96375; 99284; 99285; A9270; J1170; J2060; 81003; 87086

== ENCOUNTER 2021-05-08 11:35 | Outpatient (CLI) | payer MEDICARE, MEDICAID | END 2021-05-08 11:36 | disposition EMS.NT | LOC: EMS 11:35 | DX: R53.81 Other malaise (principal); R05 Cough; R41.9 Unspecified symptoms and signs involving cognitive functions and awareness; R11.2 Nausea with vomiting, unspecified ==

== ENCOUNTER 2022-02-08 19:09 | Outpatient (CLI) | payer MEDICARE, MEDICAID | END 2022-02-08 19:10 | disposition short-term general hospital (02) | LOC: EMS 19:09 | DX: R55 Syncope and collapse (principal); R61 Generalized hyperhidrosis | CPT/HCPCS: A0425; A0429 ==

== ENCOUNTER 2022-03-31 09:57 | Emergency (ER) | payer MEDICARE, MEDICAID ==
--- NOTE | 2022-03-31 10:55 | ED Physician Documentation ---
PD HPI DYSPNEA - Stated complaint Stated Complaint: DIFF BREATHING - Chief complaint Chief Complaint: Resp - History obtained from History obtained from: Patient, Family - History of Present Illness Timing - onset: How many days ago (4) Timing - onset during: Rest Timing - duration: Days (4) Timing - details: Gradual onset, Still present Inciting event(s): URI Improved by: O2, Inhaler/neb, Rest Worsened by: Exertion Associated symptoms: Cough, Wheezing Similar symptoms before: Has not had sx before Recently seen: Not recently seen - Additional information Additional information: 66-year-old female who has had a thalamic bleed in 2014 is wheelchair-bound and needs assistance to get out of bed at home. She has a who is currently hospitalized and a grandchild who helps care in the home. She has developed a cough and congestion about 4 days ago and she is now having difficulty talking in a full sentence. She feels it is difficult for her to get enough air into be able to cough out which she has to cough. She has not used inhalers previously. Review of Systems Constitutional: denies: Fever Eyes: denies: Decreased vision Ears: denies: Ear pain Nose: reports: Rhinorrhea / runny nose, Congestion Throat: denies: Sore throat Cardiac: reports: Chest pain / pressure. 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 - Present Medications Home Medications: Ambulatory Orders Medication Instructions Recorded Confirmed Carvedilol 12.5 mg PO DAILY 12/18/14 12/18/14 Spironolactone 25 mg PO DAILY 12/18/14 12/18/14 Baclofen 10 mg PO HS 02/11/16 lisinopriL [Lisinopril] 10 mg PO DAILY 02/11/16 cephALEXin [Keflex] 500 mg PO BID #14 capsule 08/18/18 Diphenoxylate/Atropine [Lomotil] 1 each PO QID PRN #12 tablet 02/15/21 HYDROcod/ACETAM 5/325 [[place] 5/325] 1 ea PO Q6H PRN #15 tablet 02/15/21 Ondansetron Odt [Zofran] 4 mg TL Q6H PRN #10 tablet 02/15/21 Sertraline HCl 100 mg PO DAILY 02/15/21 02/15/21 lamoTRIgine [Lamictal] 150 mg PO BID 02/15/21 02/15/21 ondansetron HCL [Zofran] 4 mg PO Q8HR PRN 02/15/21 02/15/21 Albuterol Sulf [Ventolin Hfa 1 - 2 puffs INH Q4HR PRN #1 inhaler 03/31/22 Inhaler] Azithromycin [Zithromax] 250 mg PO DAILY #6 tablet 03/31/22 - Allergies Allergies/Adverse Reactions: Allergies Allergy/AdvReac Type Severity Reaction Status Date / Time codeine Allergy Unknown Verified 02/15/21 03:57 procaine HCl * Allergy Unknown Verified 02/15/21 03:57 [From Novocain] epinephrine AdvReac Unknown Verified 02/15/21 03:57 iodine AdvReac Unknown Verified 02/15/21 03:57 Sulfa (Sulfonamide AdvReac Unknown Verified 02/15/21 03:57 Antibiotics) - Social History Does the pt smoke?: No Smoking Status: Never smoker Does the pt drink ETOH?: No Does the pt have substance abuse?: No - Immunizations Immunizations are current?: Yes - POLST Patient has POLST: No PD ED PE NORMAL - Vitals Vital signs reviewed: Yes (normal ) - General General: No acute distress, Well developed/nourished, Other (appears disinterested. ) - HEENT HEENT: Atraumatic, PERRL, EOMI, Other (dry mucous membranes ) - Neck Neck: Supple, no meningeal sign, No bony TTP - Cardiac Cardiac: RRR, No murmur - Respiratory Respiratory: Other (rhonchi in left base. Diminished breath sounds ) - Abdomen Abdomen: Soft, Non tender - Back Back: No CVA TTP, No spinal TTP - Derm Derm: Normal color, Warm and dry, No rash - Extremities Extremities: No deformity, No edema - Neuro Neuro: Alert and oriented X 3, coat cutter 2-12 intact, No motor deficit, No sensory deficit, Normal speech Eye Opening: Spontaneous Motor: Obeys Commands Verbal: Oriented GCS Score: 15 - Psych Psych: Normal mood, Normal affect Results - Vitals Vitals: Vital Signs - 24 hr 03/31/22 03/31/22 03/31/22 09:59 10:46 11:32 Temperature 37 C Heart Rate 78 77 73 Respiratory 18 Rate Blood Pressure 120/80 106/81 H 94/66 O2 Saturation 92 85 L 90 L 03/31/22 03/31/22 12:38 13:34 Temperature Heart Rate 70 68 Respiratory 22 Rate Blood Pressure 95/64 O2 Saturation 89 L Oxygen O2 Source Room air Oxygen Flow Rate 4 - Labs Labs: Laboratory Tests 03/31/22 03/31/22 03/31/22 11:06 11:44 11:44 WBC 4.8 RBC 4.70 Hgb 14.5 Hct 43.8 MCV 93.2 MCH 30.9 MCHC 33.1 RDW 14.0 Plt Count 185 MPV 9.8 Neut # (Auto) 3.7 Lymph # (Auto) 0.5 L [place] # (Auto) 0.5 Eos # (Auto) 0.1 Baso # (Auto) 0.0 Absolute Nucleated RBC 0.00 Nucleated RBC % 0.0 Sodium 135 Potassium 4.0 Chloride 97 L Carbon Dioxide 27 Anion Gap 11.0 BUN 17 Creatinine 0.9 Estimated GFR (MDRD) 63 L Glucose 88 Lactic Acid Calcium 8.8 Total Bilirubin 0.7 AST 19 ALT 15 Alkaline Phosphatase 45 Total Protein 8.0 Albumin 3.8 Globulin 4.2 Albumin/Globulin Ratio 0.9 L Lipase 37 Nasal Adenovirus (PCR) NOT DETECTED Nasal B. parapertussis DNA (PCR) NOT DETECTED Nasal Coronavir 229E PCR NOT DETECTED Nasal Coronavir HKU1 PCR NOT DETECTED Nasal Coronavir NL63 PCR NOT DETECTED Nasal Coronavir OC43 PCR NOT DETECTED Nasal Enterovir/Rhinovir PCR NOT DETECTED Nasal Influenza B PCR NOT DETECTED Nasal Influenza A PCR NOT DETECTED Nasal Parainfluen 1 PCR NOT DETECTED Nasal Parainfluen 2 PCR NOT DETECTED Nasal Parainfluen 3 PCR NOT DETECTED Nasal Parainfluen 4 PCR NOT DETECTED Nasal RSV (PCR) NOT DETECTED Nasal B.pertussis DNA PCR NOT DETECTED Nasal C.pneumoniae (PCR) NOT DETECTED Lloyd Human Metapneumo PCR DETECTED A Nasal M.pneumoniae (PCR) NOT DETECTED Nasal SARS-CoV-2 (PCR) NOT DETECTED 03/31/22 11:44 WBC RBC Hgb Hct MCV MCH MCHC RDW Plt Count MPV Neut # (Auto) Lymph # (Auto) [place] # (Auto) Eos # (Auto) Baso # (Auto) Absolute Nucleated RBC Nucleated RBC % Sodium Potassium Chloride Carbon Dioxide Anion Gap BUN Creatinine Estimated GFR (MDRD) Glucose Lactic Acid 1.1 Calcium Total Bilirubin AST ALT Alkaline Phosphatase Total Protein Albumin Globulin Albumin/Globulin Ratio Lipase Nasal Adenovirus (PCR) Nasal B. parapertussis DNA (PCR) Nasal Coronavir 229E PCR Nasal Coronavir HKU1 PCR Nasal Coronavir NL63 PCR Nasal Coronavir OC43 PCR Nasal Enterovir/Rhinovir PCR Nasal Influenza B PCR Nasal Influenza A PCR Nasal Parainfluen 1 PCR Nasal Parainfluen 2 PCR Nasal Parainfluen 3 PCR Nasal Parainfluen 4 PCR Nasal RSV (PCR) Nasal B.pertussis DNA PCR Nasal C.pneumoniae (PCR) Lloyd Human Metapneumo PCR Nasal M.pneumoniae (PCR) Nasal SARS-CoV-2 (PCR) - Rads (name of study) chest Radiology: Prelim report reviewed (Impression: No acute pulmonary process.), EMP read indepedently, See rad report PD MEDICAL DECISION MAKING - ED course Complexity details: reviewed old records, reviewed results, re-evaluated patient, considered differential, d/w patient ED course: 66-year-old female with a remote thalamic bleed who requires assistance to get in and out of bed has developed a cough and congestion has human metapneumovirus virus in her nasal secretions and a chest x-ray without infiltrate. She does end up being hypoxic on room air. After a treatment with a DuoNeb the patient's oxygen sat is 92-97% on room air. She has yellow and green phlem and a viral infection. She is sent home with a script for albuterol and zithromax. She has a daughter in law that can take care of her. Departure - Departure Disposition: 01 Home, Self Care Clinical Impression: Acute asthmatic bronchitis, Infection due to human metapneumovirus (hMPV) Condition: Stable Instructions: ED Bronchitis Asthmatic, ED Viral Syndrome Follow-Up: Bonnie Redd MD [Primary Care Provider] - Prescriptions: Albuterol Sulf [Ventolin Hfa Inhaler] 1 - 2 puffs INH Q4HR PRN #1 inhaler PRN Reason: Shortness Of Air/Wheezing Azithromycin [Zithromax] 250 mg PO DAILY #6 tablet Comments: Itzel, today it looks like you have an infection with human metapneumovirus. This is a cold virus and it looks like it is left you with some bronchitis and reactive airway. My recommendation is to use the inhaler on a regular basis every 4 hours over the next 2 days. In addition we have prescribed some antibiotic as a "clean up ". The yellow and green phlegm is not usually part of the human metapneumovirus. Medications have been E scribed to the [facility] in [place]
--- NOTE | 2022-03-31 11:42 | XRAY Report ---
PROCEDURE: Chest 1 View X-Ray INDICATIONS: chest pain TECHNIQUE: One view of the chest was acquired. COMPARISON: Chest xray FINDINGS: Surgical changes and devices: Pacemaker Lungs and pleura: No pleural effusions or pneumothorax. Lungs are clear. Mediastinum: Mediastinal contours appear normal. Heart size is normal. Bones and chest wall: No suspicious bony lesions. Overlying soft tissues appear unremarkable. IMPRESSION: No acute pulmonary process. Reviewed by: Lakia Keen MD on 03/31/2022 11:41 AM PDT Approved by: Lakia Keen MD on 03/31/2022 11:41 AM PDT Station ID: [id number]
[2022-03-31 11:52] LABS: BASOPHILS % (AUTO) 0.2 %; EOSINOPHILS # (AUTO) 0.1 10^3/uL (0.0-0.7); EOSINOPHILS % (AUTO) 1.5 %; HCT - HEMATOCRIT 43.8 % (37.0-47.0); HGB - HEMOGLOBIN 14.5 g/dL (12.0-16.0); LYMPHOCYTES # (AUTO) 0.5 10^3/uL (1.5-3.5); LYMPHOCYTES % (AUTO) 10.9 %; MEAN CORPUSCULAR HEMOGLOBIN 30.9 pg (27.0-31.0); MEAN CORPUSCULAR HGB CONC 33.1 g/dL (32.0-36.0); MEAN CORPUSCULAR VOLUME 93.2 fL (81.0-99.0); MEAN PLATELET VOLUME 9.8 fL (7.9-10.8); MONOCYTES # (AUTO) 0.5 10^3/uL (0.0-1.0); MONOCYTES % (AUTO) 9.9 %; NEUTROPHILS # (AUTO) 3.7 10^3/uL (1.5-6.6); NEUTROPHILS % (AUTO) 77.3 %; PLT - PLATELET COUNT 185 10^3/uL (130-450); WHITE BLOOD COUNT 4.8 x10^3/uL (4.8-10.8)
[2022-03-31 12:06] LABS: ALBUMIN 3.8 g/dL (3.2-5.5); ALBUMIN/GLOBULIN RATIO 0.9 (1.0-2.2); BILIRUBIN,TOTAL 0.7 mg/dL (0.2-1.0); CALCIUM 8.8 mg/dL (8.5-10.3); CREATININE 0.9 mg/dL (0.4-1.0)
[2022-03-31 12:20] LABS: B. PARAPERTUSSIS- RESP PCR PAN NOT DETECTED; B. PERTUSSIS- RESP PCR PANEL NOT DETECTED; C. PNEUMONIAE- RESP PCR PANEL NOT DETECTED; CORONAVIRUS 229E-RESP PCR NOT DETECTED; CORONAVIRUS HKU1-RESP PCR NOT DETECTED; CORONAVIRUS NL63-RESP PCR NOT DETECTED; CORONAVIRUS OC43-RESP PCR NOT DETECTED; HUMAN METAPNEUMOVIRUS DETECTED; INFLUENZA A- RESP PCR PANEL NOT DETECTED; INFLUENZA B - RESP PCR PANEL NOT DETECTED; M. PNEUMONIAE- RESP PCR PANEL NOT DETECTED; PARAINFLUENZA VIRUS 1 NOT DETECTED; PARAINFLUENZA VIRUS 2 NOT DETECTED; PARAINFLUENZA VIRUS 3 NOT DETECTED; PARAINFLUENZA VIRUS 4 NOT DETECTED; RHINOVIRUS/ENTEROVIRUS NOT DETECTED; RSV- RESP PCR PANEL NOT DETECTED; SARS-CoV-2 -RESP PCR PANEL NOT DETECTED
[2022-03-31 12:39] VITALS: BP 95/64
[2022-03-31] MEDS: IPRATROPIUM/ALBUTEROL 3 ML NEB INH STA (13:31)
== END 2022-03-31 15:20 | disposition home or self-care (01) ==
LOC: EDUNIT# → ED 09:57
DX: J45.909 Unspecified asthma, uncomplicated (principal); B97.81 Human metapneumovirus as the cause of diseases classified elsewhere; Z20.822 Contact with and (suspected) exposure to COVID-19
CPT/HCPCS: 36415; 80053; 83605; 83690; 85025; 87040; 87633; 94640; 99283

== ENCOUNTER 2022-04-07 08:47 | Outpatient (CLI) | payer MEDICARE, MEDICAID | END 2022-04-07 08:48 | disposition left against medical advice (07) | LOC: EMS 08:47 | DX: R11.2 Nausea with vomiting, unspecified (principal) ==

== ENCOUNTER 2022-04-09 11:17 | Outpatient (CLI) | payer MEDICARE, MEDICAID | END 2022-04-09 11:18 | disposition critical access hospital (66) | LOC: EMS 11:17 | DX: R07.81 Pleurodynia (principal); J18.9 Pneumonia, unspecified organism | CPT/HCPCS: A0425; A0429 ==

== ENCOUNTER 2022-09-12 01:52 | Outpatient (CLI) | payer MEDICARE, MEDICAID | END 2022-09-12 01:53 | disposition short-term general hospital (02) | LOC: EMS 01:52 | DX: S79.912A Unspecified injury of left hip, initial encounter (principal); X50.9XXA Other and unspecified overexertion or strenuous movements or postures, initial encounter; Y92.003 Bedroom of unspecified non-institutional (private) residence as the place of occurrence of the external cause | CPT/HCPCS: A0425; A0427 ==

== ENCOUNTER 2022-09-21 13:45 | Outpatient (CLI) | payer MEDICARE, MEDICAID | END 2022-09-21 13:46 | disposition critical access hospital (66) | LOC: EMS 13:45 | DX: R56.9 Unspecified convulsions (principal); R41.82 Altered mental status, unspecified; R09.02 Hypoxemia | CPT/HCPCS: A0425; A0429 ==

== ENCOUNTER 2022-09-21 14:30 | Emergency (ER) | payer MEDICARE, MEDICAID ==
[2022-09-21] MEDS ORDERED: HYDROmorphone 1 MG/ML CARPUJECT IVP STA (14:45)
--- NOTE | 2022-09-21 14:47 | ED Physician Documentation ---
PD HPI SEIZURE - Stated complaint Stated Complaint: POST SZ - History obtained from History obtained from: Patient, EMS - Additional information Additional information: 67-year-old woman with history of prior stroke and relatively frequent seizures presents after a seizure today. She was recently admitted to [facility] for a conservatively managed hip fracture, today the EMS was summoned and found the patient postictal. She had a reportedly had a tonic-clonic seizure although EMS did not witness it. Patient says she frequently have seizures. She is managed on Keppra and Vimpat for this. She states she has seizures potentially up to a few times a week. Her only complaint is from her left hip pain. She had a headache earlier but states it is now gone. History also taken from EMS, prehospital blood sugar and vitals were unremarkable. She initially had a GCS of 10 but cleared while in the ambulance to GCS of 15. 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 - Present Medications Home Medications: Ambulatory Orders Medication Instructions Recorded Confirmed Carvedilol 12.5 mg PO DAILY 12/18/14 12/18/14 Spironolactone 25 mg PO DAILY 12/18/14 12/18/14 Baclofen 10 mg PO HS 02/11/16 lisinopriL [Lisinopril] 10 mg PO DAILY 02/11/16 cephALEXin [Keflex] 500 mg PO BID #14 capsule 08/18/18 Diphenoxylate/Atropine [Lomotil] 1 each PO QID PRN #12 tablet 02/15/21 HYDROcod/ACETAM 5/325 [[place] 5/325] 1 ea PO Q6H PRN #15 tablet 02/15/21 Ondansetron Odt [Zofran] 4 mg TL Q6H PRN #10 tablet 02/15/21 Sertraline HCl 100 mg PO DAILY 02/15/21 02/15/21 lamoTRIgine [Lamictal] 150 mg PO BID 02/15/21 02/15/21 ondansetron HCL [Zofran] 4 mg PO Q8HR PRN 02/15/21 02/15/21 Albuterol Sulf [Ventolin Hfa 1 - 2 puffs INH Q4HR PRN #1 inhaler 03/31/22 Inhaler] Azithromycin [Zithromax] 250 mg PO DAILY #6 tablet 03/31/22 HYDROcodone/ACET 7.5/325 VICTOR M 10 ml PO Q6HR PRN #200 ml 04/09/22 [Lortab 7.5/325 Victor M] oxyCODONE [Roxicodone] 5 mg PO Q4-6H PRN #20 tablet 09/21/22 - Allergies Allergies/Adverse Reactions: Allergies Allergy/AdvReac Type Severity Reaction Status Date / Time codeine Allergy Unknown Verified 02/15/21 03:57 procaine HCl * Allergy Unknown Verified 02/15/21 03:57 [From Novocain] epinephrine AdvReac Unknown Verified 02/15/21 03:57 iodine AdvReac Unknown Verified 02/15/21 03:57 Sulfa (Sulfonamide AdvReac Unknown Verified 02/15/21 03:57 Antibiotics) - Social History Does the pt smoke?: No Smoking Status: Never smoker Does the pt drink ETOH?: No Does the pt have substance abuse?: No - Immunizations Immunizations are current?: Yes - POLST Patient has POLST: No PD ED PE NORMAL - Vitals Vital signs reviewed: Yes - General General: Alert and oriented X 3, No acute distress (But winces with motion related to her hip pain.) - HEENT HEENT: PERRL, EOMI - Neck Neck: Supple, no meningeal sign, No bony TTP - Cardiac Cardiac: RRR, No murmur - Respiratory Respiratory: No respiratory distress, Clear bilaterally - Abdomen Abdomen: Non tender - Derm Derm: Normal color, Warm and dry - Neuro Neuro: Alert and oriented X 3, No motor deficit, No sensory deficit, Normal speech Eye Opening: Spontaneous Motor: Obeys Commands Verbal: Oriented GCS Score: 15 Results - Vitals Vitals: Vital Signs - 24 hr 09/21/22 09/21/22 09/21/22 14:49 15:39 15:53 Temperature 36.6 C Heart Rate 72 69 71 Respiratory 16 18 22 Rate Blood Pressure 161/115 H 144/69 H O2 Saturation 100 99 86 L If not protocol : Oxygen Flow, liters/minute 09/21/22 09/21/22 09/21/22 15:56 16:09 16:30 Temperature Heart Rate 69 68 68 Respiratory 21 20 11 L Rate Blood Pressure 144/69 H 123/55 L 123/55 L O2 Saturation 95 94 99 If not protocol 2 2 : Oxygen Flow, liters/minute 09/21/22 17:00 Temperature Heart Rate 67 Respiratory 18 Rate Blood Pressure 132/72 H O2 Saturation 95 If not protocol : Oxygen Flow, liters/minute Oxygen O2 Source Room air - EKG (time done) 1502 Rate: Rate (enter#) (68) Rhythm: NSR [place]: Normal Intervals: No: Prolonged QT QRS: LVH Ischemia: Non specific changes. No: ST elevation c/w ischemia, ST depression - Labs Labs: Laboratory Tests 09/21/22 09/21/22 15:45 15:45 WBC 7.6 RBC 4.42 Hgb 12.8 Hct 40.7 MCV 92.1 MCH 29.0 MCHC 31.4 L RDW 13.5 Plt Count 208 MPV 9.8 Neut # (Auto) 6.2 Lymph # (Auto) 0.7 L [place] # (Auto) 0.6 Eos # (Auto) 0.1 Baso # (Auto) 0.1 Absolute Nucleated RBC 0.00 Nucleated RBC % 0.0 Sodium 137 Potassium 4.3 Chloride 98 L Carbon Dioxide 29 Anion Gap 10.0 BUN 17 Creatinine 0.7 Estimated GFR (MDRD) 83 L Glucose 101 H Calcium 8.9 Total Bilirubin 0.3 AST 17 ALT 13 Alkaline Phosphatase 57 Total Protein 7.5 Albumin 3.4 Globulin 4.1 Albumin/Globulin Ratio 0.8 L - Rads (name of study) CT of the head demonstrates atrophy and chronic ischemic changes with old right thalamic lacunar infarct Radiology: EMP read contemporaneously PD MEDICAL DECISION MAKING - ED course ED course: 67-year-old woman with recurrent seizure disorder presents after another recurrent seizure. It sounds like recurrent seizures for her are a fairly common phenomenon. She cleared well. Really only complaint here was her hip pain. She has a known fracture there that was elected to be treated nonoperatively at [facility]. She is taking hydrocodone for this but needed something stronger. Departure - Departure Disposition: 01 Home, Self Care Clinical Impression: Seizure Condition: Good Record reviewed to determine appropriate education?: Yes Instructions: ED Seizure Recurrent Prescriptions: oxyCODONE [Roxicodone] 5 mg PO Q4-6H PRN #20 tablet PRN Reason: Pain Comments: Follow-up with your primary care physician, also your neurologist, both next available appointments. Return for new or worsening symptoms. Continue current antiepileptic medications as routine. Continue to not drive. [facility] in [place]. I am prescribing a short course of narcotic pain medication for you. These are potentially dangerous and addictive medications that should be used carefully. These medications may constipate you. Take an [id number] stool softener (docusate) twice daily with plenty of water while taking these medications. If you go 24 hours without a bowel movement, take [id number] miralax, per package instructions. Do not drink or drive while taking these medications. If you received narcotic or sedating medications while in the emergency department, do not drive for 24 hours. Store this medication in a safe, secure place and out of reach of children. It is a violation of federal law to give or sell this medication to another person or to use in a manner other than prescribed. The ED will not refill narcotic prescriptions, including prescriptions lost or stolen. To dispose of unwanted medications: 1. [facility] at [address] in [place] has a medication drop box. They accept prescription medications (in pill form) Monday through Monday 9:00 a.m. to 5:00 p.m. 2. The [facility] [employer] accepts prescription medications (in pill form only) for disposal year round. Call for more information. 3. Contact the [facility] for the next [facility] sponsored prescription drug collection event. , [phone], or [phone]; Note that many narcotic pain relievers also contain Tylenol/acetaminophen. Please ensure that your total dose of acetaminophen from all sources does not exceed 3 g (3000 mg) per day.
--- NOTE | 2022-09-21 15:44 | CT Report ---
PROCEDURE: CT brain without contrast INDICATIONS: Seizure TECHNIQUE: Noncontrast 4.5 mm thick angled axial sections acquired from the foramen magnum to the vertex. For r adiation dose reduction, the following was used: automated exposure control, adjustment of mA and/or kV according to patient size. COMPARISON: None. FINDINGS: Image quality: Excellent. CSF spaces: Basal cisterns are patent. No extra-axial fluid collections. Ventricles are normal in size and shape. Brain: No midline shift. No intracranial masses or hemorrhage. Vasquez-white matter interface is norm al. Moderate atrophy and multifocal white matter chronic ischemic change. Old lacunar infarct noted in the right thalamus. Dense coronary vascular calcification noted in the cavernous segments of both internal carotid arteries Skull and face: Calvarium and visualized facial bones are intact, without suspicious lesions. Sinuses: Visualized sinuses and mastoids are clear. IMPRESSION: Atrophy and chronic ischemic change without intracranial hemorrhage or mass effect Old right thalamic lacunar infarct Reviewed by: Anurag Mason MD on 09/21/2022 2:43 PM [facility] Approved by: Anurag Mason MD on 09/21/2022 2:43 PM [facility] Station ID: [id number]
[2022-09-21 15:52] LABS: BASOPHILS # (AUTO) 0.1 10^3/uL (0.0-0.1); BASOPHILS % (AUTO) 0.7 %; EOSINOPHILS # (AUTO) 0.1 10^3/uL (0.0-0.7); EOSINOPHILS % (AUTO) 0.9 %; HCT - HEMATOCRIT 40.7 % (37.0-47.0); HGB - HEMOGLOBIN 12.8 g/dL (12.0-16.0); LYMPHOCYTES # (AUTO) 0.7 10^3/uL (1.5-3.5); LYMPHOCYTES % (AUTO) 8.9 %; MEAN CORPUSCULAR HGB CONC 31.4 g/dL (32.0-36.0); MEAN CORPUSCULAR VOLUME 92.1 fL (81.0-99.0); MEAN PLATELET VOLUME 9.8 fL (7.9-10.8); MONOCYTES # (AUTO) 0.6 10^3/uL (0.0-1.0); MONOCYTES % (AUTO) 7.2 %; NEUTROPHILS # (AUTO) 6.2 10^3/uL (1.5-6.6); NEUTROPHILS % (AUTO) 81.9 %; PLT - PLATELET COUNT 208 10^3/uL (130-450); RED BLOOD COUNT 4.42 10^6/uL (4.20-5.40); RED CELL DISTRIBUTION WIDTH 13.5 % (12.0-15.0); WHITE BLOOD COUNT 7.6 x10^3/uL (4.8-10.8)
[2022-09-21 16:03] LABS: ALBUMIN 3.4 g/dL (3.2-5.5); ALBUMIN/GLOBULIN RATIO 0.8 (1.0-2.2); BILIRUBIN,TOTAL 0.3 mg/dL (0.2-1.0); CALCIUM 8.9 mg/dL (8.5-10.3); CREATININE 0.7 mg/dL (0.4-1.0); POTASSIUM 4.3 mmol/L (3.5-5.0); TOTAL PROTEIN 7.5 g/dL (6.7-8.2)
[2022-09-21] MEDS ORDERED: oxyCODONE 5 MG TABLET PO STA (17:48)
[2022-09-21] MEDS ORDERED: oxyCODONE/ACET 5/325 Prepack 4 PO STA (20:07)
[2022-09-21 21:35] VITALS: BP 138/72
== END 2022-09-21 21:12 | disposition home or self-care (01) ==
LOC: EDUNIT# → ED 14:30
DX: R56.9 Unspecified convulsions (principal)
CPT/HCPCS: 36415; 70450; 80053; 85025; 93005; 96374; 99283; 99284; A9270; J1170

== ENCOUNTER 2022-09-21 21:55 | Outpatient (CLI) | payer MEDICARE, MEDICAID | END 2022-09-21 21:56 | disposition home or self-care (01) | LOC: EMS 21:55 | PROVIDERS: ATTEND Emergency Medicine | DX: R56.9 Unspecified convulsions (principal); M25.552 Pain in left hip; Z74.01 Bed confinement status | CPT/HCPCS: A0425; A0428 ==

== ENCOUNTER 2022-12-19 20:39 | Emergency (ER) | payer MEDICARE, MEDICAID ==
--- NOTE | 2022-12-19 21:39 | XRAY Report ---
PROCEDURE: Humerus LT INDICATIONS: deformity TECHNIQUE: A total of 2 views of the humerus were acquired. COMPARISON: None FINDINGS: Bones: No fractures or dislocations. No suspicious bony lesions. Soft tissues: No suspicious soft tissue calcifications. IMPRESSION: No trauma found. Reviewed by: Karl Farrell MD on 12/19/2022 9:38 PM [facility] Approved by: Karl Farrell MD on 12/19/2022 9:38 PM [facility] Station ID: [id number]
--- NOTE | 2022-12-19 22:33 | ED Physician Documentation ---
History of Present Illness - Stated complaint Stated Complaint: LT ARM PAIN - Chief complaint Chief Complaint: Ext Problem - History obtained from History obtained from: Patient - Additonal information Additional information: HPI from patient. Patient says she fell out of bed earlier this evening, did not perceive any concerning injury. denies head injury, denies LOC. Tonight, however, she looked at the LUE in approximately region of mid shaft of the humerus and perceives a deformity or defect. She says that due to a stroke, she has not movement and nearly no sensation in the LUE and thus she became concerned she might have sustained a concerning injury, such as fracture, that she cannot feel due to the CVA deficits. She arrives in LUE sling she fashioned out of a strip-like piece of rubber. 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 - Present Medications Home Medications: Ambulatory Orders Medication Instructions Recorded Confirmed Carvedilol 12.5 mg PO DAILY 12/18/14 12/18/14 Spironolactone 25 mg PO DAILY 12/18/14 12/18/14 Baclofen 10 mg PO HS 02/11/16 lisinopriL [Lisinopril] 10 mg PO DAILY 02/11/16 cephALEXin [Keflex] 500 mg PO BID #14 capsule 08/18/18 Diphenoxylate/Atropine [Lomotil] 1 each PO QID PRN #12 tablet 02/15/21 HYDROcod/ACETAM 5/325 [[place] 5/325] 1 ea PO Q6H PRN #15 tablet 02/15/21 Ondansetron Odt [Zofran] 4 mg TL Q6H PRN #10 tablet 02/15/21 Sertraline HCl 100 mg PO DAILY 02/15/21 02/15/21 lamoTRIgine [Lamictal] 150 mg PO BID 02/15/21 02/15/21 ondansetron HCL [Zofran] 4 mg PO Q8HR PRN 02/15/21 02/15/21 Albuterol Sulf [Ventolin Hfa 1 - 2 puffs INH Q4HR PRN #1 inhaler 03/31/22 Inhaler] Azithromycin [Zithromax] 250 mg PO DAILY #6 tablet 03/31/22 HYDROcodone/ACET 7.5/325 VICTOR M 10 ml PO Q6HR PRN #200 ml 04/09/22 [Lortab 7.5/325 Victor M] oxyCODONE [Roxicodone] 5 mg PO Q4-6H PRN #20 tablet 09/21/22 - Allergies Allergies/Adverse Reactions: Allergies Allergy/AdvReac Type Severity Reaction Status Date / Time codeine Allergy Unknown Verified 12/19/22 20:45 procaine HCl * Allergy Unknown Verified 12/19/22 20:45 [From Novocain] epinephrine AdvReac Unknown Verified 12/19/22 20:45 iodine AdvReac Unknown Verified 12/19/22 20:45 Sulfa (Sulfonamide AdvReac Unknown Verified 12/19/22 20:45 Antibiotics) - Social History Does the pt smoke?: No Smoking Status: Never smoker Does the pt drink ETOH?: No Does the pt have substance abuse?: No - Immunizations Immunizations are current?: Yes - POLST Patient has POLST: No PD ED PE NORMAL - Vitals Vital signs reviewed: Yes - General General: Alert and oriented X 3, No acute distress, Well developed/nourished - Derm Derm: Normal color, Warm and dry, Other (no swelling, ecymosis, abrasion, laceration of LUE. ) Results - Vitals Vitals: Oxygen O2 Source Room air - Rads (name of study) left humerus xrays Radiology: Prelim report reviewed, EMP read indepedently, See rad report PD Medical Decision Making - ED course Complexity details: reviewed results, considered differential, d/w patient ED course: left humerus xrays are without apparent abnormality including no evidence of fracture, dislocation. On exam, there is no obvious deformity, minimal tenderness to palpation of anterloateral mid-shaft without crepitus. Results of xrays d/w patient and she is very much interested in being discharged; she says he one and only concern was whether there was an injury to the left arm , such as a fracture, that would require specific treatment and follow up. She is provided a sling (she was using an ersatz sling fashioned at home out of a strip of rubber). Return precautions reviewed. Departure - Departure Disposition: Home, Self Care Clinical Impression: Left upper arm injury Qualifiers: Encounter type: initial encounter Qualified Code(s): S49.92XA - Unspecified injury of left shoulder and upper arm, initial encounter Condition: Good Instructions: ED Contusion Upper Ext, ED Sling Comments: The x-rays of your left arm (humerus) do not demonstrate any evidence of injury. Specifically, there is no evidence of any fracture (broken bones) nor dislocation of the joints imaged. Certainly, if your symptoms worsen in any way, you should follow-up with your primary doctor, next available appointment. If you feel your symptoms have worsened to the extent that would benefit emergent reevaluation, return to the emergency department. Because you have indicated that there is discomfort with movement, we have provided you with a sling. You can use the sling during the day for the next week as needed for comfort. If you feel you are still needing the sling after 1 week because of discomfort when not using it, contact your primary care provider for reevaluation. Discharge Date/Time: 12/19/22 23:06
[2022-12-19 23:03] VITALS: BP 115/70
== END 2022-12-19 23:06 | disposition home or self-care (01) ==
LOC: ED 20:39
DX: S49.92XA Unspecified injury of left shoulder and upper arm, initial encounter (principal); I69.354 Hemiplegia and hemiparesis following cerebral infarction affecting left non-dominant side; I10 Essential (primary) hypertension; W06.XXXA Fall from bed, initial encounter
CPT/HCPCS: 99283